=== PATIENT | female | born 1965 | race Hispanic/Latino ===

== ENCOUNTER 2019-11-26 11:50 | Emergency (ER) | payer OTHER ==
[2019-11-26] MEDS ORDERED: ACETAMINOPHEN 325 MG TAB ONE (15:41)
== END 2019-11-26 15:57 | disposition home or self-care (01) ==
LOC: EDH 11:50
DX: M54.2 Cervicalgia (principal); M25.511 Pain in right shoulder; Z98.890 Other specified postprocedural states; V69.49XA Driver of heavy transport vehicle injured in collision with other motor vehicles in traffic accident, initial encounter; Y93.89 Activity, other specified; Y92.488 Other paved roadways as the place of occurrence of the external cause; Y99.8 Other external cause status
CPT/HCPCS: 72040; 73030; 81025